=== PATIENT | male | born 1940 | race Caucasian/White ===

== ENCOUNTER 2020-08-14 07:07 | Emergency (ER) | payer MEDICARE ==
[~2020-08-14] VITALS: Ht 177.8 cm; Wt 86.3 kg
--- NOTE | 2020-08-14 07:58 | PHYS DOC ---
Past Medical History Past Medical History: Hypertension Additional Past Medical Histor: BARRETTS ESOPHAGUS Past Surgical History: Other Additional Past Surgical Histo: CHOLELITHIASIS Smoking Status: Former Smoker Alcohol Use: Rarely General Adult EDM: Chief Complaint: FEVER HPI: HPI: Patient is a 79 year old male who presented to ER today for evaluation of fever and chill that woke him up this morning. Patient also has a dry cough. Patient denies any chest pain, no abdominal pain, no nausea vomiting. Patient denies any trouble breathing, no headache, no neck pain. Patient denies being exposed to anybody who tested positive for COVID-19. [place] Patient said he checked his temperature this morning and it was 102 degrees. Patient did not take any antipyretic medication today. Patient denies any nasal congestion or sore throat. Review of Systems: Review of Systems: Constitutional: Positive for fever or chills. [] Eyes: Denies change in visual acuity. [] HENT: Denies nasal congestion or sore throat. [] Respiratory: Positive for cough , no shortness of breath. [] Cardiovascular: Denies chest pain or edema. [] GI: Denies abdominal pain, nausea, vomiting, bloody stools or diarrhea. [] : Denies dysuria. [] Musculoskeletal: Denies back pain or joint pain. [] Integument: Denies rash. [] Neurologic: Denies headache, focal weakness or sensory changes. [] Endocrine: Denies polyuria or polydipsia. [] Lymphatic: Denies swollen glands. [] Psychiatric: Denies depression or anxiety. [] Heart Score: Risk Factors: Risk Factors: DM, Current or recent (<one month) smoker, HTN, HLP, family history of CAD, obesity. Risk Scores: Score 0 - 3: 2.5% MACE over next 6 weeks - Discharge Home Score 4 - 6: 20.3% MACE over next 6 weeks - Admit for Clinical Observation Score 7 - 10: 72.7% MACE over next 6 weeks - Early Invasive Strategies Allergies: Allergies: Allergies Coded Allergies Type Severity Reaction Last Updated Verified No Known Drug Allergies 08/14/20 No Physical Exam: PE: Constitutional: Well developed, well nourished, no acute distress, non-toxic appearance. [] HENT: Normocephalic, atraumatic, bilateral external ears normal, oropharynx moist, no oral exudates, nose normal. [] Eyes: PERRLA, EOMI, conjunctiva normal, no discharge. [] Neck: Normal range of motion, no tenderness, supple, no stridor. [] Cardiovascular:Heart rate regular rhythm, no murmur [] Lungs & Thorax: Bilateral breath sounds clear to auscultation [] Abdomen: Bowel sounds normal, soft, no tenderness, no masses, no pulsatile masses. [] Skin: Warm, dry, no erythema, no rash. [] Back: No tenderness, no CVA tenderness. [] Extremities: No tenderness, no cyanosis, no clubbing, ROM intact, no edema. [] Neurologic: Alert and oriented X 3, normal motor function, normal sensory function, no focal deficits noted. [] Psychologic: Affect normal, judgement normal, mood normal. [] Current Patient Data: Vital Signs: Vital Signs Date Time Temp Pulse Resp B/P (MAP) Pulse Ox O2 Delivery O2 Flow Rate FiO2 08/14/20 07:15 98.6 93 18 136/65 (88) 93 Room Air 98.6 EKG: EKG: [] Radiology/Procedures: Radiology/Procedures: [][facility] [address] [place] [address] IMAGING REPORT Signed PATIENT: DANIELLE ROWE ACCOUNT: [id number] : 1940 LOCATION: ER AGE: 79 SEX: M EXAM STATUS: REG ER ORD. PHYSICIAN: FEMI STYLES DO REASON: cough, fever PROCEDURE: PORTABLE CHEST 1V PORTABLE CHEST 1V Clinical indications: Cough and fever. COMPARISON: None available. Findings: There is a consolidative infiltrate within the right midlung zone. There is a smaller consolidative infiltrate within the left infrahilar region. No pleural effusion or pneumothorax is seen. Heart size and mediastinum and pulmonary vasculature are unremarkable. IMPRESSION: Bilateral lung infiltrates. Electronically signed by: Anay Ahn MD (08/14/2020 8:24 AM) [id number] DICTATED and SIGNED BY: ANAY AHN MD DATE: 08/14/20 0824 Course & Med Decision Making: Course & Med Decision Making Pertinent Labs and Imaging studies reviewed. (See chart for details) Patient is a 79-year-old male who was found to have pneumonia, he said he feels much better, he did not want to stay in the hospital. Patient will be discharged home Alexa Disclaimer: Alexa Disclaimer: This electronic medical record was generated, in whole or in part, using a voice recognition dictation system. Departure Departure Impression: Primary Impression: CAP (community acquired pneumonia) Additional Impression: Suspected 2019-nCoV infection Disposition: HOME, SELF-CARE Condition: STABLE Referrals: TODD HERNANDEZ MD (PCP) PLEASE FOLLOW UP WITH YOUR DOCTOR NEXT WEEK. RETURN IF YOU HAVE SHORTNESS OF AIR OR WORSEN SYMPTOMS. Patient Instructions: Pneumonia, Adult Additional Instructions: You have been tested for or diagnosed with COVID-19. It is an infection caused by a new type of coronavirus. COVID-19 will cause cold-like or mild flu symptoms in most. It can cause more severe symptoms like problems breathing in some. There is no treatment for COVID-19. The body will clear the infection over time. Self-care will help to ease discomfort. Steps to Take: Self-Care Rest as needed. Healthy habits may help you feel better. Steps include: Choose healthy foods including fruits and vegetables. Drink water throughout the day. Get plenty of sleep each night. If you smoke, try to quit. It may ease breathing. Avoid alcohol. Keep Others Healthy The virus can spread to others. Droplets are released every time you sneeze or cough. The droplets can get into the mouth, nose, or eyes of people near you and lead to infection. To lower the chances of spreading COVID-19 to others: Stay at home until your doctor has said it is safe to leave. If you tested positive this will mean staying isolated until both of the following are true: At least 7 days have passed since the start of illness. You are free of fever for at least 72 hours without the use of medicine. During this time: - Avoid public areas, events, or transportation. Do not return to work or school until your doctor has said it is safe to do so. - Call ahead if you need to go to a medical center. Let them know you may have COVID-19. It will help them guide you where to go. They may also ask you to wear a facemask when you come to the office. - If you call for emergency medical services, let them know you may have COVID- 19. While at home: - Try to avoid close contact with others. Stay about 6 feet away. - If possible, spend most of your time in a separate room from others. - Use a face mask if you will be in close contact with others such as sharing a room or vehicle. - Have someone wipe down common surfaces in the home. Use household ball truing machine operator every day on areas like doorknobs, counters, or sinks. - Cough or sneeze into a tissue. Throw the tissue away right after use. If a tissue is not available, cough or sneeze into your elbow. - Wash your hands often. Wash them after sneezing or coughing. Use soap and water and wash for at least 20 seconds. Alcohol based hand window cleaner can be used if soap and water is not available. - Do not prepare food for others. Avoid sharing personal items like forks, spoons, or toothbrushes. - Avoid close contact with pets while you are sick. There is no evidence of the virus passing to pets. This is a safety step until more is known about this virus. Isolation can be frustrating. Social interaction can help. Keep in touch with friends and family through phone and tech options. You can still interact with others in your home, just keep a safe distance of about 6 feet. Follow-up: Your doctors office will check in with you to see if there are any changes in your health. You may be asked to keep track of symptoms to share with them. They will also let you know when you are clear to be in public again. Problems to Look Out For: Contact your doctor if your recovery is not going as you expect. Get emergency care if you have problems such as: - Trouble breathing - Nonstop chest pain or pressure - Changes in awareness, confusion, or problems waking - Lips or face have bluish color - Worsening of symptoms If you think you have an emergency, call for emergency medical services right away. As taken from [facility] Levofloxacin (LEVOFLOXACIN) 750 Mg Tablet 1 TAB PO DAILY, #10 TAB Prov: FEMI STYLES DO 08/14/20 Justicifation of Admission Dx: Justifications for Admission: Justification of Admission Dx: N/A FEMI STYLES DO Aug 14, 2020 07:58
[2020-08-14 08:03] LABS: BASO % 0 % (0-3); EOS % 0 % (0-3); HEMOGLOBIN 13.8 g/dL (13.0-17.5); LYMPH # 0.4 x10^3/uL (1.0-4.8); LYMPH % 4 % (24-48); MEAN CORPUSCULAR HEMOGLOBIN 34 pg (25-35); MEAN CORPUSCULAR HGB CONC 35 g/dL (31-37); MEAN CORPUSCULAR VOLUME 98 fL (79-100); MONO # 0.6 x10^3/uL (0.0-1.1); MONO % 6 % (0-9); NEUT # 9.1 x10^3/uL (1.8-7.7); NEUT % 89 % (31-73); PLATELET COUNT 182 x10^3/uL (140-400); RED BLOOD COUNT 4.09 x10^6/uL (4.30-5.70); RED CELL DISTRIBUTION WIDTH 12.3 % (11.5-14.5); WHITE BLOOD COUNT 10.2 x10^3/uL (4.0-11.0)
[2020-08-14 08:12] LABS: CALCIUM 8.9 mg/dL (8.5-10.1); GFR 72.5; POTASSIUM 3.4 mmol/L (3.5-5.1)
[2020-08-14 08:17] LABS: ALBUMIN 3.1 g/dL (3.4-5.0); ALBUMIN/GLOBULIN RATIO 0.8 (1.0-1.7); TOTAL BILIRUBIN 0.6 mg/dL (0.2-1.0)
--- NOTE | 2020-08-14 08:27 | RAD ---
PORTABLE CHEST 1V Clinical indications: Cough and fever. COMPARISON: None available. Findings: There is a consolidative infiltrate within the right midlung zone. There is a smaller consolidative infiltrate within the left infrahilar region. No pleural effusion or pneumothorax is seen. Heart size and mediastinum and pulmonary vasculature are unremarkable. IMPRESSION: Bilateral lung infiltrates. Electronically signed by: Malcom Ahn MD (08/14/2020 8:24 AM) [id number]
[2020-08-14] MEDS ORDERED: IV NORMAL SALINE 1000ML BAG 1,000 ML IV ONE (08:45)
[2020-08-14] MEDS ORDERED: cefTRIAXone IV Push 1 GM VIAL. IVP ONE (08:45)
[2020-08-14] MEDS ORDERED: AZITHRMYCN 500MG IVPB FOR OMNI 250 ML IV ONE (08:45)
[2020-08-14] MEDS ORDERED: AZITHROMYCIN 500 MG in IV NORMAL SALINE 250ML 250 ML IV ONE (08:45)
[2020-08-14] MEDS ORDERED: LEVO750T5 PO (09:22)
[2020-08-14] MEDS ORDERED: AZITHROMYCIN 250 MG TABLET. ONE (09:37)
[2020-08-14 09:40] VITALS: BP 109/55
[2020-08-14] MEDS ORDERED: AZITHROMYCIN 250 MG TABLET. PO ONE (09:45)
[2020-08-14 10:34] LABS: % BANDS 13 % (0-9); % BASOS 1 % (0-3); % EOS 1 % (0-5); % LYMPHS 2 % (24-48); % MONOS 4 % (0-10); % SEGS 79 % (35-66); PLT ESTIMATE ADEQUATE (ADEQUATE)
--- NOTE | 2020-08-16 10:04 | NUR ---
IP: Informed pt of negative COVID test. Pt verbalized understanding.
== END 2020-08-14 09:50 | disposition home or self-care (01) ==
LOC: ER 07:07
DX: J18.9 Pneumonia, unspecified organism (principal); Z20.828 Contact with and (suspected) exposure to other viral communicable diseases; I10 Essential (primary) hypertension; Z87.891 Personal history of nicotine dependence
CPT/HCPCS: 36415; 71045; 80053; 83605; 83690; 85007; 85025; 85610; 87040; 96374; 99285; J0696; U0003